=== PATIENT | female | born 1980 | race African-American/Black ===

== ENCOUNTER 2018-09-03 16:17 | Emergency (ER) | payer OTHER ==
[~2018-09-03] VITALS: Ht 175.3 cm; Wt 74.8 kg
--- NOTE | ~2018-09-03 | EKG ---
[address] [facility] - [facility] [place] [address] ELECTROCARDIOGRAM REPORT Name: BILL CARABALLO [facility] [id number] Admission: 09/03/18 Attend Phys: Discharge: 09/03/18 Date of : 84 Report #: [id number] THIS REPORT FOR: //name// [facility] ED Test Date: 2018-09-03 Test Time: 16:25:23 Pat Name: BILL CARABALLO Department: Room: Gender: F Database Manager: DEISI : 1980 Requested By: Kylie Salinas Order Number: [id number] MD: Ap Lira Measurements Intervals [place] Rate: 72 P: 63 [place]: 156 QRS: 75 QRSD: 79 T: 46 QT: 405 QTc: 444 Interpretive Statements Sinus rhythm Left ventricular hypertrophy Baseline wander in lead(s) V4 No previous ECG available for comparison Electronically Signed On 09-04-2018 7:53:20 [employer] by Ap Lira [email or web address] <ELECTRONICALLY SIGNED> By: Ap Lira MD, [facility] 09/04/18 0753 [id number] 1625 Ap Lira MD, FACC /EPI
[~2018-09-03 16:17] MED LIST: MACROBID 100 M100 M1 PO; PHENERGAN 25 MG25 M1 PO; PROMS25 WY RECTAL
[2018-09-03 17:04] LABS: ANION GAP 8 mmol/L (7-16); BUN 19 mg/dL (7-18); CALCIUM 9.3 mg/dL (8.5-10.1); CHLORIDE 101 mmol/L (98-107); CO2 29 mmol/L (21-32); CREATININE 1.3 mg/dL (0.6-1.0); GLUCOSE 81 mg/dL (74-106); POTASSIUM 3.7 mmol/L (3.5-5.1); SODIUM 138 mmol/L (136-145)
[2018-09-03 17:12] LABS: TROPONIN-I <0.06 ng/mL (<0.06)
[2018-09-03 17:42] LABS: ABSOLUTE NEUTROPHILS 4.4 thou/uL (1.4-8.2); BASOPHILS 0.9 % (0.0-2.0); HEMATOCRIT 25.6 % (37.0-47.0); HEMOGLOBIN 8.2 gm/dL (12.0-15.0); LYMPHOCYTES 25.6 % (24.0-44.0); MCH 22.5 pg (26.0-34.0); MCV 70.4 fL (80.0-100.0); MONOCYTES 9.8 % (1.0-8.0); PLATELET COUNT 439 thou/uL (150-400); POLYS 61.7 % (36.0-66.0); RBC 3.64 mil/uL (4.20-5.00); RDW 18.6 % (10.5-14.5); WBC 7.1 thou/uL (4.0-11.0)
[2018-09-03 18:00] LABS: URINE BILIRUBIN NEGATIVE (Negative); URINE BLOOD NEGATIVE (Negative); URINE CLARITY CLEAR; URINE COLOR YELLOW; URINE GLUCOSE-RANDOM* NEGATIVE (Negative); URINE KETONES TRACE (Negative); URINE LEUKOCYTES 1+ (Negative); URINE NITRITE NEGATIVE (Negative); URINE PROTEIN (DIPSTICK) TRACE (Negative); URINE SPECIFIC GRAVITY >= 1.030 (1.005-1.035); URINE UROBILINOGEN 0.2 E.U./dl (0.2-1.0)
[2018-09-03 18:16] LABS: AMORPHOUS URATES Moderate /LPF (None Seen); BACTERIA 1-9 Few /HPF (None Seen); CASTS None Seen /LPF (None Seen); MUCUS >6 Heavy strn/LPF (None Seen); SQUAMOUS >10 Many /LPF (0-3); URINE RBC 0-2 Rare /HPF (0-2); URINE WBC 6-15 Few /HPF (0-5)
[2018-09-03] MEDS ORDERED: IRON325 PO (19:02)
[2018-09-03 19:42] LABS: ANISOCYTOSIS 2+; BURR CELLS OCCASIONAL; HYPOCHROMASIA 2+; MICROCYTES 1+; SCHISTOCYTES OCCASIONAL
== END 2018-09-03 19:04 | disposition home or self-care (01) ==
LOC: ER 16:17
PROVIDERS: Student in an Organized Health Care Education/Training Program
DX: D50.9 Iron deficiency anemia, unspecified (principal); F17.210 Nicotine dependence, cigarettes, uncomplicated

== ENCOUNTER 2020-03-29 09:41 | Emergency (ER) | payer OTHER ==
[~2020-03-29] VITALS: Ht 175.3 cm; Wt 95.3 kg
[~2020-03-29 09:41] MED LIST changes: +IRON325 PO
[2020-03-29] MEDS ORDERED: HYDROXYZINE HCL25 M2 PO (09:50)
[2020-03-29] MEDS ORDERED: REXULTI2 MG PO (09:50)
[2020-03-29] MEDS ORDERED: BUPROPION HCL150 M1 PO (09:51)
[2020-03-29] MEDS ORDERED: DESVENLAFAXINE100 MG PO (09:51)
[2020-03-29 10:03] LABS: URINE BILIRUBIN NEGATIVE (Negative); URINE BLOOD NEGATIVE (Negative); URINE CLARITY CLEAR; URINE COLOR YELLOW; URINE GLUCOSE-RANDOM* NEGATIVE (Negative); URINE KETONES NEGATIVE (Negative); URINE LEUKOCYTES-REFLEX NEGATIVE (Negative); URINE NITRITE-REFLEX POSITIVE (Negative); URINE PROTEIN (DIPSTICK) NEGATIVE (Negative); URINE SPECIFIC GRAVITY 1.015 (1.005-1.035); URINE UROBILINOGEN 0.2 E.U./dl (0.2-1.0)
[2020-03-29 10:22] LABS: CASTS None Seen /LPF (None Seen); CRYSTALS None Seen /LPF (None Seen); SQUAMOUS >10 Many /LPF (0-3)
[2020-03-29 10:23] LABS: URINE RBC None Seen /HPF (0-2)
[2020-03-29 10:24] LABS: URINE WBC-REFLEX 6-15 Few /HPF (0-5)
[2020-03-29 11:05] LABS: ABSOLUTE NEUTROPHILS 6.9 thou/uL (1.4-8.2); BASOPHILS 0.8 % (0.0-2.0); HEMOGLOBIN 10.4 gm/dL (12.0-15.0); LYMPHOCYTES 18.2 % (24.0-44.0); MCHC 32.5 g/dL (28.0-37.0); MONOCYTES 7.3 % (1.0-8.0); PLATELET COUNT 385 thou/uL (150-400); POLYS 71.7 % (36.0-66.0); RDW 19.6 % (10.5-14.5); WBC 9.6 thou/uL (4.0-11.0)
[2020-03-29 11:08] LABS: CALCIUM 8.7 mg/dL (8.5-10.1); CREATININE 1.3 mg/dL (0.6-1.0); POTASSIUM 3.5 mmol/L (3.5-5.1)
[2020-03-29 11:15] LABS: ALBUMIN 3.8 g/dL (3.4-5.0); TOTAL BILIRUBIN 0.4 mg/dL (0.2-1.0); TOTAL PROTEIN 8.1 g/dL (6.4-8.2)
[2020-03-29 11:46] LABS: ANISOCYTOSIS 2+; OVALOCYTES FEW
[2020-03-29 12:18] VITALS: BP 137/86
== END 2020-03-29 12:18 | disposition home or self-care (01) ==
LOC: ER 09:41
PROVIDERS: Emergency Medicine
DX: R10.12 Left upper quadrant pain (principal); F17.210 Nicotine dependence, cigarettes, uncomplicated; F12.90 Cannabis use, unspecified, uncomplicated; Z79.899 Other long term (current) drug therapy; Z98.51 Tubal ligation status

== ENCOUNTER 2021-02-10 21:05 | Emergency (ER) | payer OTHER ==
[~2021-02-10] VITALS: Ht 162.6 cm; Wt 68.0 kg
[~2021-02-10 21:05] MED LIST changes: +BUPROPION HCL150 M1 PO; +DESVENLAFAXINE100 MG PO; +HYDROXYZINE HCL25 M2 PO; +REXULTI2 MG PO
[2021-02-10 21:16] VITALS: BP 122/68
[2021-02-10] MEDS ORDERED: NAPROSYN500 MG PO (21:45)
[2021-02-10] MEDS ORDERED: TYLENOL325 M1 PO (21:45)
== END 2021-02-10 22:40 | disposition home or self-care (01) ==
LOC: ER 21:05
DX: S60.012A Contusion of left thumb without damage to nail, initial encounter (principal); F17.210 Nicotine dependence, cigarettes, uncomplicated; Z79.899 Other long term (current) drug therapy; Z98.51 Tubal ligation status; X50.1XXA Overexertion from prolonged static or awkward postures, initial encounter; Y93.89 Activity, other specified; Y92.89 Other specified places as the place of occurrence of the external cause; Y99.9 Unspecified external cause status

== ENCOUNTER 2021-05-08 07:45 | Emergency (ER) | payer OTHER ==
[~2021-05-08] VITALS: Ht 175.3 cm; Wt 83.9 kg
[~2021-05-08 07:45] MED LIST changes: +NAPROSYN500 MG PO; +TYLENOL325 M1 PO
[2021-05-08] MEDS ORDERED: FLEXERIL PO ×2 (08:35→08:40)
== END 2021-05-08 08:42 | disposition home or self-care (01) ==
LOC: ER 07:45
DX: S56.811A Strain of other muscles, fascia and tendons at forearm level, right arm, initial encounter (principal); D64.9 Anemia, unspecified; F17.210 Nicotine dependence, cigarettes, uncomplicated; Z98.51 Tubal ligation status; Z79.899 Other long term (current) drug therapy; Z72.89 Other problems related to lifestyle; W01.0XXA Fall on same level from slipping, tripping and stumbling without subsequent striking against object, initial encounter; Y93.89 Activity, other specified; Y92.89 Other specified places as the place of occurrence of the external cause; Y99.8 Other external cause status